=== PATIENT | male | born 2000 | race Asian ===

== ENCOUNTER 2021-06-17 23:24 | Emergency (ER) | payer SELFPAY ==
[~2021-06-17] VITALS: Ht 180.3 cm; Wt 73.0 kg
[2021-06-17] MEDS ORDERED: KETOROLAC 30MG/ML VIAL IV STA (23:47)
[2021-06-17] MEDS ORDERED: ONDANSETRON 4MG ODT PO STA (23:47)
[2021-06-18] MEDS ORDERED: SODIUM CHLORIDE 0.9% 1,000 ML IV ONE
[2021-06-18 00:19] LABS: CLARITY URINE CLOUDY (CLEAR); COLOR URINE DARK YELLOW (YELLOW); KETONES URINE 3+ (NEGATIVE); LEUKOCYTE ESTERASE URINE TRACE (NEGATIVE); NITRITE URINE NEGATIVE (NEGATIVE); OCCULT BLOOD URINE 3+ (NEGATIVE); PH URINE 5.5 (4.5-8.0); PROTEIN URINE 1+ (NEGATIVE); SPECIFIC GRAVITY URINE 1.023 (1.005-1.030)
[2021-06-18 00:42] LABS: BASOPHILS % 0.2 % (0.0-2.0); EOSINOPHILS % 0.1 % (0.0-5.0); HEMATOCRIT. 44.6 % (42.0-52.0); HEMOGLOBIN. 14.9 g/dL (14.0-18.0); MEAN CORPUSCULAR HEMOGLOBIN 31.4 pg (28.0-32.0); MEAN PLATELET VOLUME 8.8 fl (7.4-10.4); MONOCYTES % 6.1 % (2.0-8.0); NEUTROPHILS % 79.6 % (40.0-76.0); PLATELET 220 x1000/uL (130-400); RED BLOOD CELL COUNT 4.74 mill/uL (4.7-6.1)
[2021-06-18 00:52] LABS: CHLORIDE 104 mEq/L (98-107)
[2021-06-18] MEDS ORDERED: TAMS-11 PO (04:32)
[2021-06-18] MEDS ORDERED: IBUP-2029 MT (04:32)
[2021-06-18 04:55] VITALS: BP 118/67
== END 2021-06-18 04:57 | disposition home or self-care (01) ==
LOC: ER 23:59
DX: N20.0 Calculus of kidney (principal)
CPT/HCPCS: 36415; 74176; 80053; 81003; 83690; 85025; 96360; 99284; J7030